=== PATIENT | male | born 1940 | race Hispanic/Latino ===

== ENCOUNTER 2018-02-07 05:40 | Inpatient (IN) | payer MEDICARE, OTHER ==
--- NOTE | 2018-01-27 11:46 | NUR ---
PATIENT IS HERE TODAY FOR PREADMISSION APPOINTMENT. HE IS SCHEDULED TO HAVE SURGERY ON 02/07/18. HE IS SWEDISH SPEAKING. MELISSA FROM THE IMAGING DEPARTMENT WAS ABLE TO COME AND TRANSLATE. PATIENT STATES HE LIVES ALONE AND DOES NOT HAVE ANYONE RELIABLE TO TAKE HIM TO APPOINTMENTS SO HE CALLS UNTIL HE FINDS SOMEONE. HE WOULD LIKE TO HAVE PHYSICAL THERAPY SET UP IN [place] AND PLANS TO GO HOME AFTER SURGERY WHEN HE IS DISCHARGED. HE HAS 3 STEPS INTO HIS HOME AND NO STEPS ONCE INSIDE THE HOME. HE HAS A TUB/SHOWER COMBO AND WE TALKED ABOUT NEEDING TO OBTAIN A SHOWER BENCH. HE WAS GIVEN PLACES HE WOULD PURCHASE ONE OR POSSIBLY RENT ONE. HE WOULD LIKE DC PLANNING TO LOOK INTO HAVING A WALKER DELIVERED TO THE HOSPITAL BEFORE HIS DC HOME. HE HOPES HE WILL HAVE SOMEONE WITH HIM THE MORNING OF SURGERY TO TRANSLATE BUT STATES THE PERSON DRINKS ALCOHOL AND IS UNRELIABLE. THIS INFORMATION WILL BE SENT TO DR QUINTANILLA OFFICE AND DC PLANNING FOR FURTHER FOLLOW UP.
[~2018-02-07] VITALS: Ht 170.2 cm; Wt 90.7 kg
--- NOTE | 2018-02-07 08:46 | NUR ---
02/07/18 0846 Gemini Buckley 0826 PT ARRIVES TO PACU WITH ORAL AIRWAY X 2 AND NPA TO LEFT NARE IN PLACE. PT ON SIMPLE MASK AT 10 LPM. BREATHING EVEN AND NON LABORED. PT NONAROUSABLE AT THIS TIME. CMS INTACT TO LEFT LEG, BILATERAL SCD'S AND WALTER HOSE IN PLACE. 0842 NO CHANGE IN PT ASSESSMENT. BREATHING EVEN AND NON LABORED. IV FLUIDS INFUSING TKO. PT NONAROUSABLE, CRYOCUFF PLACED TO LEFT LEG.
--- NOTE | 2018-02-07 09:45 | NUR ---
PT ARRIVED TO FLOOR VIA HOSPITAL BED, RECIEVED REPORT FROM SHIN LÓPEZ. PT LATVIAN SPEAKING MOSTLY BUT IS ABLE TO MAKE NEEDS KNOWN. DENIES PAIN OR NAUSEA, REQUESTING SOME WATER TO DRINK, SHAZIA SIPS OF WATER AT THIS TIME. LEFT KNEE DRESSING CDI. CRYOCUFF, TEDS, HEEL PROTECTORS, AND SCD'S IN PLACE. PT ALERT AND ORIENTED. SATTING 98% ON RA. IV INFUSING WNL. DURAMORPH SPINAL RESOLVING APPROPRIATELY, SENSATION AT ANKLE LEVEL AT THIS TIME, GOOD MOVEMENT. PT VOIDED IN URINAL UPON ARRIVING TO ROOM. CALL LIGHT WITHIN REACH.
--- NOTE | 2018-02-07 10:49 | OR ---
[facility] [address], [place] [address] Signed DATE OF OPERATION: 02/07/2018 SURGEON: Antonio Brock MD PREOPERATIVE DIAGNOSIS: Degenerative joint disease, left knee. POSTOPERATIVE DIAGNOSIS: Degenerative joint disease, left knee. PROCEDURE PERFORMED: Left total knee arthroplasty with computer navigation. VENDING MANAGER: None. ANESTHESIA: Spinal. BLOOD LOSS: Minimal. TOURNIQUET TIME: 55 minutes. IMPLANT: [place] Triathlon size 5 with a 13 mm insert, 35 mm patella. BRIEF HISTORY: Juan Carlos is a 77-year-old gentleman with progressive worsening of severe arthritis. He had unremitting pain that was non-relieved by nonoperative measures. The risks and benefits of operative treatment were discussed with him and he elected to proceed. DESCRIPTION OF PROCEDURE: Once consent was obtained, he was taken to the operating room. After adequate anesthesia, he was placed on the operating table. All downside pressure points well padded. The left hip bump was placed. The leg was placed in well-padded proximal thigh tourniquet, and prepped and draped in the standard sterile fashion. The leg was exsanguinated using Esmarch bandage. Tourniquet inflated to 250 mmHg. Standard anterior approach through curved incision was taken through skin and subcutaneous Electronically Signed By: ANTONIO BROCK MD 02/07/18 1049 PATIENT NAME: JUAN CARLOS LUCIO OPERATIVE REPORT DATE OF : 42 REPORT #: [id number] PHYSICIAN: ANTONIO BROCK MD PCP: NO PRIMARY CARE PHYSICIAN REPORT IS CONFIDENTIAL AND NOT TO BE RELEASED WITHOUT AUTHORIZATION [facility] [address], [place] [address] Signed tissue. Median parapatellar arthrotomy was performed. The infrapatellar fat pad was excised and the MCL was elevated of a sleeve around the posterior medial corner. The anterior horns of menisci were transected as was the ACL. The knee was flexed and the menisci were removed. The navigation guide was pinned to the distal femur and the femur was registered with the computer. The distal femoral cutting block was then pinned in neutral alignment and the distal femoral cut was made. The distal femur sized to a 5 and the 5 cutting block was pinned in line with the epicondylar axis. The anterior, posterior, and chamfer cuts were made. The bone was excised as were any osteophytes. Attention was then turned to proximal tibia. The navigation guide was pinned to the proximal tibia and the tibia was registered with the computer. The cutting block was then pinned in neutral alignment and set to take 2 mm off the most involved posterior medial corner. Once this was accomplished, the tibial cut was made with care taken to protect the patellar tendon and MCL. The bone was excised as were any meniscal remnants. Posterior osteophytes removed off the femur. Posterior release performed. The flexion and extension gaps were sized and found to be symmetric at 13 mm. The trials were positioned. Knee was taken through range of motion and found to be stable from 0-140 degrees. Alignment was neutral. The patella was cut, sized, and drilled for a 35 mm patella. The patella tracked well. The distal femoral holes were made and the trials removed. The proximal tibia was finished using the keel punch and the bone was pulse lavaged, packed with dry Ray-Kathe. Cement was mixed, when reached proper consistency, displaced all implants on all bone surfaces. Tibia was impacted into position first followed by the femur. All excess cement was removed. The polyethylene was snapped into position. Knee was extended and nicely loaded. The patella was clamped and again any remaining cement was removed. The cement was allowed to harden. Once it hardened sufficiently, the knee was flexed and any remaining excess was removed using osteotomes. The knee was pulse lavaged at intervals throughout the procedure. A total of 3 L antibiotic irrigation was used. The periarticular soft tissues were injected with 100 mL ropivacaine Toradol mixture. The arthrotomy was then closed using #2 StrataFix, the subcutaneous tissue with 0 Stratafix, and skin with ammon. Wound was dressed with a Mepilex Ag dressing, ABD, and Beto wrap. He was awakened and taken to recovery room in satisfactory condition. All sponge, needle, and instrument counts were correct. Antonio Brock MD BA/MODL /[id number] Electronically Signed By: ANTONIO BROCK MD 02/07/18 1049 PATIENT NAME: JUAN CARLOS LUCIO OPERATIVE REPORT DATE OF : 42 REPORT #: [id number] PHYSICIAN: ANTONIO BROCK MD PCP: NO PRIMARY CARE PHYSICIAN REPORT IS CONFIDENTIAL AND NOT TO BE RELEASED WITHOUT AUTHORIZATION [address] [address] Signed Copies: ~ Electronically Signed By: ANTONIO BROCK MD 02/07/18 1049 PATIENT NAME: JUAN CARLOS LUCIO OPERATIVE REPORT DATE OF : 42 REPORT #: [id number] PHYSICIAN: ANTONIO BROCK MD PCP: NO PRIMARY CARE PHYSICIAN REPORT IS CONFIDENTIAL AND NOT TO BE RELEASED WITHOUT AUTHORIZATION
--- NOTE | 2018-02-07 10:55 | NUR ---
PT SITTING UP IN BED DRINKING CLEAR LIQUIDS, SHAZIA WELL. CONT TO DENY PAIN. REPORTING SENSATION DOWN TO TOES BUT LEFT SIDE OF BUTTOCKS REMAINS NUMB. PT WEANED TO RA, SATTING 96% ON RA. DRESSING CDI. CALL LIGHT WITHIN REACH.
--- NOTE | 2018-02-07 11:13 | NUR ---
PATIENT CALLED FOR ASSISTANCE WITH URINARY INCONTINENCE. THIS EXTERNAL GRINDER, AND RN TANNER AND STUDENT NURSE ASSISTED PATIENT TO SIT AT EDGE OF BED AND STAND BRIEFLY IN ORDER TO CHANGE LINENS. PATIENT LAYING BACK IN BED. BED ALARM ON. CRYO ON, SCD'S ON. CALL LIGHT IN REACH. RN IN ROOM. NO OTHER NEEDS AT THIS TIME.
--- NOTE | 2018-02-07 12:14 | NUR ---
PT RESTING IN BED, WATCHING TV AND SLEEPING OFF AND ON. DRESSING CDI. PT CONT TO DENY PAIN. CALL LIGHT WITHIN REACH.
--- NOTE | 2018-02-07 13:15 | NUR ---
PT RESTING WITH EYES CLOSED, RESP EVEN AND UNLABORED. SATTING 92% ON RA WHILE ASLEEP.
--- NOTE | 2018-02-07 13:26 | NUR ---
THERAPY IN ROOM WITH PATIENT, NO OTHER NEEDS AT THIS TIME.
--- NOTE | 2018-02-07 13:45 | NUR ---
PT WORKING WITH Bry
--- NOTE | 2018-02-07 14:36 | NUR ---
PATIENT REQUESTED BREIFS TO WEAR, AND SOMETHING TO EAT. PATIENT DRESSED IN PULL UP BRIEFS. PATIENT REQUESTED TO TALK TO RN ABOUT SURGERY PROCEDURE. PATIENT'S CRYO REFILLED. RN IN ROOM. CALL LIGHT IN REACH. NO OTHER NEEDS AT THIS TIME.
--- NOTE | 2018-02-07 15:08 | NUR ---
USED HAND FORMER HELPER LINE TO COMMUNICATE WITH PT. HAND FORMER HELPER HAS DIFFIFCUTY UNDERSTANDING PT HE WAS MUMBLING AND SLURRING HIS WORDS. PT BECOMES OBVIOUSLY FRUSTRATED WHEN WE CANNOT UNDERSTAND HIM. DENIES PAIN. STATES SOMETIMES HE CAN'T FEEL WHEN HE PEES. PT SEEMS TO BE GENERALLY CONFUSED ABOUT THE PROCEDURE AND WHAT IS GOING ON AT THIS MOMENT IN TIME. ATTEMPTED TO EDUCATE PT USING HAND FORMER HELPER LINE. PT AGREEABLE BUT DROWSY AND FELL ASLEEP EASILY THROUGHOUT CONVERSATION. DRESSING CDI. CALL LIGHT WITHIN REACH.
--- NOTE | 2018-02-07 15:34 | NUR ---
PATIENT RESTING IN BED, ON PHONE. CALL LIGHT IN REACH. NO OTHER NEEDS AT THIS TIME
--- NOTE | 2018-02-07 16:00 | NUR ---
PT TRANSFERRED TO RM 121. PT VERY IMPULSIVE, SLIGHTLY DISORIENTED, DIFFICULT TO COMMUNICATE WITH. DR. QUINTANILLA NOTIFIED AND AWARE. PT IN BED AT THIS TIME FALLING ASLEEP OFF AND ON. SATS DROP TO 88% WHILE ASLEEP, PLACED ON 2LNC. TEDS, SCD'S, CRYOCUFF, HEEL PROTECTORS IN PLACE. BED ALARM ON. CALL LIGHT WITHIN REACH.
--- NOTE | 2018-02-07 16:50 | NUR ---
PATIENT'S CRYO CUFF STILL FULL. PATIENT ON PHONE WITH FAMILY, CALL LIGHT AND BELONGINGS WITHIN REACH, NO OTHER NEEDS AT THIS TIME.
--- NOTE | 2018-02-07 17:20 | NUR ---
PT AWAKES TO VOICE BUT FALLS ASLEEP EASILY. VOIDS FREQUENTLY IN URINAL. LEFT LEG DRESSING CDI. DENIES PAIN.
--- NOTE | 2018-02-07 18:20 | NUR ---
PT IN BED RESTING WITH EYES CLOSED. SATTING 95% ON 2LNC.
--- NOTE | 2018-02-07 18:43 | NUR ---
PT INCONTINENT OF URINE. LINENS CHANGED. PT HAS TROUBLE FOLLOWING COMMANDS. BED ALARM ON.
--- NOTE | 2018-02-07 19:55 | NUR ---
RECEIVED REPORT FROM DAY SHIFT RN. PATIENT IS RESTING IN BED WATCHING TV. FAMILY IS IN THE ROOM AT THIS TIME. CALL LIGHT IN REACH.
--- NOTE | 2018-02-07 20:44 | NUR ---
PT USED URINAL APPROX 15 MIN AGO. REQUESTED AND RECEIVED PUDDING, JELLO. DRINKING WATER WITHOUT COMPLAINTS OF NAUSEA. NEEDED REMINDERS TO NOT PUSH AGAINST THE BED WITH HIS LEFT FOOT, TO KEEP LEG STRAIGH. APPEARED TO UNDERSTAND BY HIS NOD, MING IN ROOM SPEAKING BROKEN AZERBAIJANI TO HIM THE INSTRUCTIONS GIVEN.
--- NOTE | 2018-02-07 21:42 | NUR ---
PATIENT ASSESMENT COMPLETED. HOSPITAL STAFF IN THE ROOM TO INTERPRET MEDICATIONS. PATIENTS MEDICATIONS GIVEN PER ORDER. PATIENT DENIES ANY PAIN AT THIS TIME. PATIENT ASSISTED TO THE RESTROOM A 2PA W/FWW. PATIENT STRUGGLES WITH INSTRUCTIONS. PATIENT NEEDS CONSTANT REMINDER ON PROPER MECHANICS WITH THE FWW. PATIENT IS BACK IN BED RESTING. PATIENT HAS TEDHOSE, SCDS, CRYO, AND HEEL PROTECTORS IN PLACE. PATIENTS CRYO REFILLED WITH ICE PER DIRECTIONS. PATIENT DENIES ANY PAIN AFTER AMBULATION. PATIENTS DRESSING IS C/D/I WITH NO DRAINAGE PRESENT. PATIENT HAS PULSE OX IN PLACE, READINGS ARE WNL. PATIENT IS ON RA. PATIENTS URINE OUTPUT IS QS. PATIENT APPEARS SLIGHTLY CONFUSED. PATIENTS BED ALARM IS ON FOR SAFETY. CALL LIGHT IN REACH AND DEMONSTRATED ON HOW TO USE.
--- NOTE | 2018-02-07 23:59 | NUR ---
PATIENT IS RESTING IN BED WITH EYES CLOSED. PULSE OX READINGS ARE WNL. PATIENT IS ON RA. PATIENT HAS SCDS, TEDHOSE, CRYO AND HEEL PROTECTORS IN PLACE. CALL LIGHT IN REACH.
--- NOTE | 2018-02-08 02:26 | NUR ---
PATIENTS 0200 VITALS TAKEN AND RECORDED. PATIENTS 0200 MEDICATIONS GIVEN PER ORDER. PATIENT DENIES ANY PAIN. PATIENT USED URINAL IN BED AND WAS ABLE TO VOID. PATIENT CONTINUES TO REST IN BED WITH SCDS, TEDHOSE, HEEL PROTECTORS, AND CRYO IN PLACE. CRYO REFILLED WITH ICE. PATIENT REPOSTIONED IN BED. PATIENT REMINDED TO KEEP HIS KNEE STRAIGHT. PATIENT VERBALIZED UNDERSTANDING. PATIENT DENIES ANY FURTHER NEEDS. PATIENT REMAINS FORGETFUL AT TIMES AND STUGGLES WITH FOLLOWING COMMANDS. BED ALARM ON FOR SAFETY. CALL LIGHT IN REACH.
--- NOTE | 2018-02-08 04:32 | NUR ---
PATIENT IS RESTING IN BED WITH EYES CLOSED. RR 17. PULSE OX READINGS ARE WNL. CALL LIGHT IN REACH. BED ALARM IS ON FOR SAFETY.
--- NOTE | 2018-02-08 05:02 | NUR ---
PATIENT RESTED WELL THROUGHOUT THE SHIFT. PATIENT IS [place] SPEAKING. PATIENT IS CONFUSED AT TIMES, REORIENTS EASILY. PATIENT IS A 2PA W/FWW. PATIENT STRUGGLES TO FOLLOW DIRECTIONS. PATIENT IS ON A REGULAR DIET AND IS TOLERATING IT WELL, NO NAUSEA NOTED. PATIENT HAS SCDS, TEDHOSE, AND HEEL PROTECTORS BILAT LOWER EXT. PATIENT HAS CRYO APPLIED TO LEFT KNEE. PATIENT HAS BED ALARM ON FOR SAFETY. PATIENTS DRESSING IS C/D/I, NO DRAINAGE NOTED. PATIENT HAS IV FLUIDS INFUSING. OUTPUT QS. PATIENT IS ON RA.
--- NOTE | 2018-02-08 06:35 | NUR ---
PATIENTS MORNING MEDICATIONS GIVEN PER ORDER. PATIENT RATES PAIN AT A 2/10. PATIENT DENIES THE NEED FOR FURTHER PAIN MEDICATION. PATIENT ASSISTED TO USE THE URINAL PATIENT WAS ABLE TO VOID. PATIENT IS NOW IN THE RECLINER RESTING. SCDS, TEDHOSE, AND HEEL PROTECTORS IN PLACE. CRYO REFILLED WITH ICE. PATIENT HAS CRYO APPLIED TO LEFT KNEE. PATIENTS DRESSING IS C/D/I, NO DRAINAGE NOTED. PATIENT IS MORE CLEAR THIS MORNING. PATIENTS CHAIR ALARM IS ON FOR SAFETY. PATIENTS CALL LIGHT IN REACH.
--- NOTE | 2018-02-08 06:49 | NUR ---
MARIBEL ALONZO COMMUNICATED IN DANISH TO PT. ABLE TO GET A BREAKFAST ORDER, SHE TOLD PT TO KEEP LEG STRAIGHT, TO USE CALL LIGHT WHEN HE NEEDS HELP, HE TOLD HER THAT HE CAN'T READ, GLASSES DON'T HELP. PT STATED HE UNDERSTOOD.
--- NOTE | 2018-02-08 07:00 | NUR ---
BEDSIDE HANDOFF REPORT RECEIVED FROM PARKING METER COLLECTOR RN. PT SITTING IN CHAIR. CRYOCUFF AND SCDS IN PLACE. PT ON ROOM AIR. PT DENIES NEEDS AT THIS TIME, TALKING ON THE PHONE.
--- NOTE | 2018-02-08 07:51 | NUR ---
PATIENT SITTING UP IN CHAIR. RN, STUDENT NURSE, AND IN ROOM TO SEE PATIENT.
--- NOTE | 2018-02-08 08:00 | NUR ---
PT SITTING IN CHAIR. MD TO BEDSIDE TO EVALUATE PT. PT ON ROOM AIR, LUNG SOUNDS CLEAR. PT RATING PAIN 0/10. PT DENIES NAUSEA, BOWEL TONES ACTIVE, TOLERATING REGULAR DIET, PT DOES NOT HAVE DENTURES IN PLACE. PT ALERT/ORIENTED. PT WITH DRESSING TO LEFT KNEE, CDI. PT WITH FULL SENSATION IN BLE, ABLE TO DORSI/PLANTAR FLEX, PULSES PALPABLE, CAP REFILL 2 SECONDS. WALTER HOSE AND SCDS IN PLACE. IV FLUIDS INFUSING TO RIGHT HAND. INCOME TAX ADMINISTRATOR AND INSTRUCTOR AT BEDSIDE TO PASS MORNING MEDICATIONS. PT DENIES OTHER NEEDS AT THIS TIME.
--- NOTE | 2018-02-08 11:26 | NUR ---
PATIENT SITTING UPRIGHT IN BEDROOM CHAIR SPEAKING WITH FAMILY, PATIENT REPORTS 2/10 PAIN TO LEFT KNEE, PATIENT DENIES NEED FOR INTERVENTIONS AT THIS TIME.
--- NOTE | 2018-02-08 11:53 | NUR ---
PATIENT HAS WORKED WITH OTHERAPY AND PTHERAPY. PATIENT SITTING UP IN CHAIR. STUDENT NURSE IN ROOM. STUDENT NURSE HAS BEEN ASSISTING WITH TRANSLATING. ICE IN CRYO. FRESH ICE WATER. CALL LIGHT WITHIN REACH. NO OTHER NEEDS AT THIS TIME.
--- NOTE | 2018-02-08 12:45 | NUR ---
PT ASSISTED TO BATHROOM AND BACK TO CHAIR. PT DENIES PAIN AT REST, RATIGN PAIN 2/10 WITH MOVEMENT, DECLINING NEED FOR PAIN MEDICATION. PT TOLERATING REGULAR DIET, DENIES NAUSEA. PT ON ROOM AIR, DENIES SOB. DRESSING TO LEFT KNEE, CDI, CRYOCUFF IN PLACE. CMS INTACT, WITHOUT EDEMA. NO ACUTE CHANGES. PT DENIES OTHER NEEDS AT THIS TIME.
--- NOTE | 2018-02-08 16:32 | NUR ---
PATIENT ASSESSMENT, PATIENT ON ROOM AIR, PATIENT WITH NORMAL PULSES BILATERALLY IN ALL EXTREMITIES, PATIENT WITH CLEAR LUNG SOUNDS IN ALL PARK, BOWELS ACTIVE, PATIENT IS ALERT AND ORIENTED, PATIENT WITH REPORTS OF PAIN UPON AMBULATION WITH PT, ADMINISTRATION OF PRN OXYCODONE GIVEN TO PATIENT, PATIENT IN POSITION OF COMFORT IN CHAIR WITH LEFT LEG EXTENDED STRAIGHT, CRYO PACK IN PLACE. WARM BLANKET PROVIDED.
--- NOTE | 2018-02-08 17:28 | NUR ---
PATIENT AWAKE IN BEDSIDE CHAIR THROUGHOUT THE SHIFT. PATIENT IS ALERT AND ORIENTED. LUX[place]BOURG[place] SPEAKING, NO CONFUSION. PATIENT AMBULATED WITH PT TODAY, PATIENT IS A 1PA W/FWW TO BATHROOM. PATIENT REPORTS DIZZINESS AT TIMES WHILE AMBULATING. PATIENT IS ON A REGULAR DIET AND IS TOLERATING WELL, NO NAUSEA. PATIENT'S PAIN CONTROLLED WITH SCHEDULE TYLENOL/TORADOL AND OXYCODONE. PATIENT HAS SCDS, TEDHOSE, AND HEEL PROTECTORS BILATERAL WITH CRYO APPLIED TO LEFT KNEE. DRESSING CLEAN, DRY AND INTACT. PATIENT HAS IV SALINE LOCKED. PATIENT IS ON RA.
[2018-02-08] MEDS ORDERED: DORZOLAMIDE-TIM10 ML OU (18:20)
[2018-02-08] MEDS ORDERED: TYLENOL325 MG PO (18:21)
--- NOTE | 2018-02-08 18:21 | NUR ---
MED REC COMPLETE
--- NOTE | 2018-02-08 19:10 | NUR ---
RECEIVED REPORT FROM DAY SHIFT RN. PATIENT IS RESTING IN THE RECLINER TALKING ON HIS CELLPHONE. NO NEEDS NOTED. CALL LIGHT IN REACH.
--- NOTE | 2018-02-08 19:58 | NUR ---
THIS INDUSTRIAL LOCOMOTIVE OPERATOR ASSISTED PATIENT FROM THE CHAIR TO THE RESTROOM. 1 PERSON WITH FWW. PATIENT NOW SITTING UP IN BED. ICE IN CRYO. FRESH ICE WATER. SCDs AND HEEL PROTECTORS ON. BED ALARM ON. CALL LIGHT WITHIN REACH. NO OTHER NEEDS AT THIS TIME.
--- NOTE | 2018-02-08 20:20 | NUR ---
PATIENT ASSESMENT COMPLETED. PATIENTS EVENING MEDCIATIONS GIVEN PER ORDER. PATIENT RATES PAIN AT A 3/10. PATIENT DENIES THE NEED FOR PRN PAIN MEDICATION AT THIS TIME. PATIENT REPOSITIONED IN BED. PATIENT HAS SCDS, TEDHOSE, CRYO, AND HEEL PROTECTORS IN PLACE. PATIENTS CRYO HAS SUFFICIENT ICE AT THIS TIME. PATIENT HAS A SMALL AMOUNT OF DRAINAGE NOTED ON THE MEPILEX. PATIENT IS JAMA[place] SPEAKING. INTERPRETIVE MEASURES USED TO COMMUNICATE. PATIENT IS AAOX3. PATIENT IS FORGETFUL WITH MOVEMENT WITH HIS KNEE AND RESTING ON HIS SIDE. PATIENT EDUCATED ON PROPER REST WITH HIS KNEE. PATIENT VERBALIZED UNDERSTANDING. NO FURTHER NEEDS NOTED. CALL LIGHT IN REACH. BED ALARM ON FOR SAFETY PATIENT IS IMPULSIVE AT TIMES.
--- NOTE | 2018-02-08 21:35 | NUR ---
PATIENTS BED ALARM ALERTED STAFF. PATIENT WAS USING URINAL. PATIENT REPOSITIONED IN BED WHEN HE WAS DONE VOIDING. NO NEEDS NOTED. CALL LIGHT IN REACH. NAD BED ALARM ON.
--- NOTE | 2018-02-08 23:54 | NUR ---
PATIENTS URINAL EMPTIED. PATIENT EDUCATED ON NOT SLEEPING ON HIS SIDE. PATIENT VERBALIZED UNDERSTANDING. PATIENT DENIES ANY PAIN. PATIENT DENIES ANY FURTHER NEEDS. CALL LIGHT IN REACH.
--- NOTE | 2018-02-09 00:45 | NUR ---
PATIENT WAS FOUND RESTING IN BED ON HIS LEFT SIDE WITH KNEES CURLED UP. USED INTERPRETIVE LINE TO EDUCATED PATIENT ON PROPER POSITIOING. PATIENT VERBALIZED UNDERSTANDING. PATIENT DENIES ANY PAIN. NO FURTHER NEEDS NOTED. CALL LIGHT IN REACH.
--- NOTE | 2018-02-09 02:27 | NUR ---
PATIENT ASSISTED TO THE RESTROOM BY POSTAL DELIVERY OFFICER. PATIENT IS A SBA W/FWW. PATIENT IS FOLLWOING DIRECTIONS BETTER BUT STILL STRUGGLES. PATIENT IS BACK IN BED RESTING. SCDS, TEDHOSE, HEEL PROTECTORS AND CRYO IN PLACE. PATIENT RATES PAIN AT A 3/10. 0200 SCHEDULED MEDICATIONS GIVEN PER ORDER. PRN PAIN MEDICATION GIVEN PER ORDER. NO FURTHER NEEDS NOTED. CALL LIGHT IN REACH. AND BED ALARM ON.
--- NOTE | 2018-02-09 04:22 | NUR ---
PATIENT IS RESTING IN BED WITH EYES CLOSED. BREATHING IS EVEN AND UNLABORED, RR 17. CALL LIGHT IN REACH.
--- NOTE | 2018-02-09 05:12 | NUR ---
PATIENT RESTED WELL THROUGHOUT THE SHIFT. PATIENT IS ON A REGUALR DIET, TOLERATING WELL, NO NAUSEA NOTED. PATIENT HAS HEEL PROTECTORS, SCDS, TEDHOSE, CRYO IN PLACE. PATIENT IS A 1PA W/FWW. PATIENT IS SL AND IV FLUSHES WELL. PAITENT IS [place] SPEAKING. PATIENT IS AAOX3. PATIENTS DRESSING HAS OLD DRAINGE NOTED. PATIENT RECEIVED PRN PAIN MEDICATION X1. PATIENT IS IMPULSIVE AT TIMES. BED ALARM ON FOR SAFETY.
--- NOTE | 2018-02-09 06:24 | NUR ---
PATIENT ASSITED TO THE RESTROOM A SBA W/FWW. PATIENT TOLERATED AMBULATION WELL. PATIENT IS NOW RESTING IN RECLINER. PATIENT HAS TEDHOSE, SCDS, HEEL PROTECTORS, AND CRYO IN PLACE. CRYO REFILLWED WITH ICE. PATIENT DENIES ANY PAIN. MORNING MEDICATIONS GIVEN PER ORDER. PATIENT DENIES ANY FURTHER NEEDS. AAOX3. CALL LIGHT IN REACH.
--- NOTE | 2018-02-09 06:48 | NUR ---
NEW IV STARTED IN PATIENTS LEFT HAND. OTHER IV DC'D, N OLONGER PATENT. NO PAIN NOTED. CALL LIGHT IN REACH.
--- NOTE | 2018-02-09 07:15 | NUR ---
BEDSIDE HANDOFF REPORT RECEIVED FROM MACHINE SNELLER RN. PT UP TO BATHROOM, ASSISTED BACK TO CHAIR. PT DENIES OTHER NEEDS AT THIS TIME.
--- NOTE | 2018-02-09 08:27 | NUR ---
PT SITTING IN CHAIR. PT ON ROOM AIR, LUNG SOUNDS CLEAR. PT TOLERATING REGULAR DIET, DENIES NAUSEA, BOWEL TONES ACTIVE, PT WITH BM TODAY, SENNA AND MIRALAX HELD. PT SALNE LOCKED, IV TORADOL GIVEN BY NUDE MODEL AND INSTRUCTOR. MD TO BEDSIDE, REMOVED DRESSING, ORDER TO REPLACE DRESSING THIS AM, PLAN TO DISCHARGE TOMORROW. CMS INATCT, WITHOUT EDEMA, PULSES PALPABLE, STRENGTH EQUAL BILATERALLY. WALTER HOSE, SCDS, HEEL PROTECTORS AND CRYOCUFF IN PLACE. PT RATIGN PAIN 0/10 AT REST, 10/10 WITH ACTIVITY, PRN OXYCODONE GIVEN FOR PROPHYLAXIS FOR PT/OT THIS AM. PT COMPLAINT OF DIZZINESS, BP 122/69, O2 SATS 95%. CALL LIGHT WITHIN REACH. PT DENIES OTHER NEEDS AT THIS TIME.
--- NOTE | 2018-02-09 12:02 | NUR ---
DR. QUINTANILLA CALLED AND UPDATED ON HYPOTENSION, 500 ML NS BOLUS AND PT CONDITION. NO NEW ORDERS. PT CURRENTLY WORKING WITH OCCUPATIONAL THERAPY.
--- NOTE | 2018-02-09 12:39 | NUR ---
FAXED CHART NOTES TO [facility] TO INCLUDE FACESHEET, ORDER FOR FWW, H AND P, OP NOTES, PROG NOTES, PT AND OT NOTES. TALKED WITH ANIL AT [facility], SHE STATED IT WOULD BE BROUGHT UP TO PT TODAY.
--- NOTE | 2018-02-09 15:00 | NUR ---
GABAPENTIN GIVEN PER ORDER. TYPESETTING SUPERVISOR PHONE USED TO EDUCATE PT ABOUT GABAPENTIN. PT REQUESTING TO USE BATHROOM, 1PA WITH FWW. PT ASSISTED BACK TO BED. VOIDING QS, HAD BM. SCDS, WALTER HOSE, CRYOCUFF, HEEL PROTECTORS IN PLACE. PT RATIGN PAIN 10 AT THIS TIME. PT DENIES OTHER NEEDS.
--- NOTE | 2018-02-09 18:21 | NUR ---
PT ON ROOM AIR, LUNG SOUNDS CLEAR. PT COMPLAINT OF DIZZINESS, HYPOTENSIVE THIS AM, 500 ML FLUID BOLUS GIVEN. PT TOLERATING REGULAR DIET, DENIES NAUSEA, MULTIPLE STOOLS TODAY, MIRALAX HELD. PAIN MANAGED WITH PRN OXYCODONE, SCHEDULED TYLENOL AND TORADOL. UP WITH 1PA WITH FWW, NEEDS PROMPTING TO KEEP WALKER CLOSE. SCDS, WALTER HOSE, HEEL PROTECTORS AND CRYOCUFF. DRESSING CHANGED TODAY. VOIDING QS.
--- NOTE | 2018-02-09 20:25 | NUR ---
ROUNDED CHARGE. PATIENT IS RESTING IN BED. NO PAIN NOTED. PATIENT DENIES ANY COMMENTS, QUESTIONS, OR CONCERNS. NO NEEDS NOTED. CALL LIGHT IN REACH.
--- NOTE | 2018-02-09 20:42 | NUR ---
Voided clear yellow urine, up to brp, uses 1 sba and fww. Jose simons bilat, scds, cryocugg and heel protectors in place, dressing left knee. SL patent Coop with assessment
--- NOTE | 2018-02-09 23:18 | NUR ---
RESTING, EYES CLOSED, L KNEE SURGICAL SITE OPEN TO AIR, EDGES WELL APPROX, CDI, WALTER HOSE, SCDS, HEEL PROTECTOR BILAT IN PLACE, CRYOCUFF TO LEFT KNEE AREA. NO S/SX DISTRESS
--- NOTE | 2018-02-10 04:29 | NUR ---
Resting, no distress, eyes closed, no s/sx distress. L knee cryocuff in place, kimberli hoses, scds, heel protectors bilat in place.
--- NOTE | 2018-02-10 05:06 | NUR ---
up to brp, voided plus used urinal, had smear of bm, no other c/o pain. 1SBA and FWW, tolerated well,
--- NOTE | 2018-02-10 05:45 | NUR ---
Up to brp using fww and 1 assist. gait slightly unsteady, reinforcement of proper use of walker/gait coordination. Left Knee incision open to air, CDI. kimberli hose, scds, heel protectors in place bilat. L knee cryocuff in place. Takes Tylenols and Toradol for pain control ATC. good pain control stated. Currently awake, in bed, HOB elevated ,no c/o pain, no sob, no requests. Pt does require several cues at times to get into bed. COntinue to reinforce teaching. All procedures and care explained to pt in Belarusian, stated understanding
--- NOTE | 2018-02-10 05:51 | NUR ---
Pt continues on cbg's q6h, teaching given to pt verbally and written in Belgian, all questions answered to her satisfaction. Pt seems to have a hard time doing fingerstick and giving own insulin when this RN tryed to teach her. Pt has arthritis in hands and it makes it difficult to place a good ggrasp on lancets/syringes. Continue to reinforce teaching. No c/o abd pain or n/v. IVF infusing w/o problems. Pt tolerating clear liquid diet. Up to brp with one assist. Belgian speaking, all intructions given in Belgian, all questions answered to pts satisfaction, continue to reinforce diabetic teaching
--- NOTE | 2018-02-10 06:55 | NUR ---
Dr Brock in room examining pt
--- NOTE | 2018-02-10 07:15 | NUR ---
BEDSIDE HANDOFF REPORT RECEIVED FROM SOFTWARE ENGINEER WEB SERVICES RN. PT SLEEPING, LEDT UNDISTURBED.
--- NOTE | 2018-02-10 08:45 | NUR ---
PT SLEEPING IN BED, AWOKEN FOR MEDICATIONS AND MORNING ASSESSMENT. INTERNET MARKETING ASSISTANT PHONE USED. PT DENIES PAIN, DENIES NAUSEA. PT ON ROOM AIR, LUNG SOUNDS CLEAR. PT DENIES NAUSEA, BOWEL TONES ACTIVE, TOLERATING REGULAR DIET, ASSISTED WITH ORDERING BREAKFAST. CMS INTACT, WITHOUT EDEMA, PULSES PALPABLE. STRENGTH EQUAL IN BLE. PT ASSISTED TO BATHROOM AND THEN TO CHAIR. SCDS. WALTER HOSE, AND CRYOCUFF IN PLACE. PT DENIES OTHER NEEDS AT THIS TIME.
--- NOTE | 2018-02-10 11:14 | NUR ---
PT ASSISTED TO BATHROOM AND BACK TO CHAIR. PT WITH URIN AWILDA SOCKS AND WALTER HOSE, REMOVED, SKIN CLEANSES, NEW TEDS AND SOCKS APPLIED. NURSE AIDE AT [facility], FILLING CRYOCUFF. PT DENIES OTHER NEEDS AT THIS TIME.
--- NOTE | 2018-02-10 12:00 | NUR ---
PT SITTING IN CHAIR. PT DENIES PAIN. PT ON ROOM AIR. CMS INTACT. CRYOCUFF TO LEFT KNEE. NO ACUTE CHANGES. PT DENIES NEEDS AT THIS TIME.
--- NOTE | 2018-02-10 14:40 | NUR ---
PT WORKED WITH OCCUPATIONAL THERAPY. ASSISTED BACK TO BED. PT RATIGN PAIN 03/06 ATTHIS TIME, GIVEN SCHEDULED TYLENOL AND TORADOL. CRYOCUFF AND SCDS PLACED. PT DENIES OTHER NEEDS AT THIS TIME.
--- NOTE | 2018-02-10 16:48 | NUR ---
I ORDERED HIS BREAKFAST AROUND 9AM THIS MORNING BECAUSE HE STILL SLEEPING. REFUSED TO TAKE A SHOWER.
--- NOTE | 2018-02-10 17:50 | NUR ---
PT ON ROOM AIR, LUNG SOUNDS CLEAR. PAIN WELL MANAGED WITH TYLENOL AND TORADOL, DID NOT REQUIRE OXYCODONE FOR BREAK THROUGH PAIN. PT WORKED WITH PT/OT, MET GOALS. PT TOLERATED REGULAR DIET, DENIES NAUSEA. CMS INTACT, GOOD STRENTH. LEFT KNEE WITH DRESSING, SMALL AMOUNT OF BLOODY DRAINAGE TO MEPILEX. 1PA WITH FWW. WALTER HOSE, CRYOCUFF, SCDS, HEEL PROTECTORS IN PLACE. PT VOIDING QS.
--- NOTE | 2018-02-10 19:35 | NUR ---
RECIEVED BEDSIDE REPORT FROM DAY SHIFT RN. PT IN BED AT THIS TIME. CRYOCUFF IN PLACE, TEDHOSE AND SCD'S IN PLACE. SL LH. REPORTS NO PAIN AT THIS TIME. LANGUAGE BARRIOR NOTED, INTERPRITOR NUMBER IN ROOM. HEEL PROTECTORS IN PLACE. CALL LIGHT IN PLACE.
--- NOTE | 2018-02-10 22:00 | NUR ---
PT OOB WITHOUT USING CALL LIGHT AND WITHOUT WALKER TO BATHROOM. SAW PT FROM NURSING STATION. CAME TO ASSISTANCE, REMINDED OF USE ON WALKER AND FALL PREVENTION. PT VERY INAPROPRIATE WITH FEMALE RN. WOULD NOT VERBALIZE UNDERSTANDING JUST REPEATING "MOMMY, EYE MOMMY, COME HOME WITH ME" INFORMED PT OF INAPPROPRIATENESS. PT DID NOT ACKNOWLEDGE BOUDARY. PT BACK TO BED RE-EDUCATED STONECUTTER HAND LIGHT USE. PT WAS ABLE TO VERBILY STATE WHAT THE CALL LIGHT WAS FOR. BED ALARM IN PLACE, PT VISIBLE FROM NURSING STATION. REPORTS NO OTHER NEEDS AT THIS TIME
--- NOTE | 2018-02-10 22:47 | NUR ---
VITALS AND I&OS DONE AND CHARTED. BEDSIDE TABLE AND CALL LIGHT WITHIN REACH.
--- NOTE | 2018-02-11 | NUR ---
PT APPEARS TO BE SLEEPING. RESPIRATIONS EQUAL AND NONLABORED. CALL LIGHT WITHIN REACH, BED ALARM IN PLACE. CRYOCUFF, SCD'S, TEDHOSE, HEEL PROTECTORS IN PLACE. VISIBLE FROM NURSING STATION.
--- NOTE | 2018-02-11 01:49 | NUR ---
HELPED PT TO THE BATHROOM AND BACK TO BED WITH HIS FWW. CRYO FILLED WITH ICE. BEDSIDE TABLE AND CALL LIGHT WITHIN REACH. SET BED ALARM. PT NEEDS NOTHING ELSE AT THIS TIME.
--- NOTE | 2018-02-11 02:11 | NUR ---
PT APPEARS TO BE SLEEPING, RESPIRATIONS EQAUL AND NONLABORED, AWOKEN EASILY, REPORTS NO PAIN AT THIS TIME. SCHEDULED TORIDOL GIVEN. CALL LIGHT WITHIN REACH, CRYOCUFF, SCD'S, TEDHOSE, HEEL PROTECTORS IN PLACE. BED ALARM ON.
--- NOTE | 2018-02-11 04:42 | NUR ---
PT APPEARS TO BE SLEEPING, RESPIRATIONS ARE EQUAL AND NONLABORED. BED ALARM IN PLACE, CRYOCUFF, TEDHOSE, SCD'S, HEEL PROTECTORS IN PLACE. CALL LIGHT WITHIN REACH,
--- NOTE | 2018-02-11 06:17 | NUR ---
PT SLPET ALL NIGHT. PAIN WELL CONTROLED W/ SCHEDULED TYLENOL AND TORIDOL. SBA W/FWW. PT/OT, SCD'S, CRYOCUFF, HEEL PROTECTORS, TEDHOSE IN PLACE. PRN OXY WAS NOT NEEDED THSI SHIFT. PT IS MALTESE SPEAKING, TRANSLATE PHONE NUMBER IN ROOM. PT ON REG DIET. PLAN TO DC TODAY. GETTING MEDICAID RIDE.
[2018-02-11] MEDS ORDERED: NEURONTIN300 MG PO (07:37)
[2018-02-11] MEDS ORDERED: XARELTO10 MG PO (07:37)
[2018-02-11] MEDS ORDERED: OXYCODONE HCL5 MG PO (07:37)
[2018-02-11] MEDS ORDERED: MAPAP500 M1 PO (07:37)
[2018-02-11] MEDS ORDERED: SENNA LAX8.6 MG PO (07:37)
[2018-02-11] MEDS ORDERED: MIRALAX17 GM PO (07:37)
--- NOTE | 2018-02-14 08:27 | DS ---
[facility] [address] [place], [place] [address] Signed ADMISSION DATE: 02/07/2018 DISCHARGE DATE: 02/11/2018 ADMISSION DIAGNOSIS: Degenerative joint disease, left knee discharge. DISCHARGE DIAGNOSIS: Degenerative joint disease, left knee discharge. PROCEDURE PERFORMED: Left total knee arthroplasty. BRIEF HISTORY: The patient is a 77-year-old gentleman who had severe arthritis. He had undergone nonoperative treatment without substantial relief. Risks, benefits, and alternatives of surgery were discussed with him once medical clearance was obtained. He was taken to the operating room and underwent the above-named procedure. He tolerated this well and was taken to the recovery room and subsequently to orthopedic floor. He was placed on oxycodone and gabapentin for pain relief. He did well although his pain did not improve until the last day of his hospitalization. He was able to ambulate up and down the stairs, up and down the hallway with good safety profile. He was able to get himself in and out of bed to be safe at home. We will discharge him home with outpatient physical therapy. He will follow up with me as previously scheduled. Should he have any problems in the meantime, he will contact me immediately. Antonio Brock MD BA/GRACIELA /[id number] Copies: ~ Electronically Signed By: ANTONIO BROCK MD 02/14/18 0827 PATIENT NAME: JUAN CARLOS LUCIO DISCHARGE SUMMARY DATE OF : 44 REPORT #: [id number] PHYSICIAN: ANTONIO BROCK MD PCP: NO PRIMARY CARE PHYSICIAN REPORT IS CONFIDENTIAL AND NOT TO BE RELEASED WITHOUT AUTHORIZATION
--- NOTE | 2018-02-14 09:30 | NUR ---
WEDNESDAY AFTER PT DC, DANIELE LÓPEZ CAME TO MY OFFICE VOICING A CONCERN ABOUT HOW WELL THE PT UNDERSTOOD HIS DC INSTRUCTIONS AND HIS FOLLOW UP INSTRUCTIONS FOR PT. DR QUINTANILLA OFFICE WAS CLOSED WEDNESDAY AFTERNOON, SO CALLED THE OFFICE THIS AM TO ASK IF [employer] SPEAKING STAFF WOULD FOLLOW UP WITH A PHONE CALL TO MAKE SURE HE UNDERSTOOD THESE INSTRUCTIONS. TALKED WITH ANNABELLE, SHE STATED THEY WOULD GLADLY CALL AND FOLLOW UP WITH HIM. SHE CALLED TO OP PT ONLY TO DISCOVER THAT THE PT WAS ALREADY THERE GETTING HIS THERAPY. STATES SHE WILL CALL THE PT THIS AFTERNOON OR TOMORROW TO SEE HOW HE IS DOING.
--- NOTE | 2018-02-14 10:02 | NUR ---
FAXED DC SUMMARY AND DC PACKET TO ISHA AT DR QUINTANILLA OFFICE. RECIEVED FAX CONFIRMATION FROM THIS.
== END 2018-02-11 12:20 | disposition home or self-care (01) | DRG 470 ==
LOC: DS 05:40 → MS 08:36 → DS 08:36 → MS 12:20
PROVIDERS: ADMIT Specialist
PROC: 8E0YXBZ Computer Assisted Procedure of Lower Extremity (ICD-10-PCS; 2018-02-07)
PROC: 3E0T3BZ Introduction of Anesthetic Agent into Peripheral Nerves and Plexi, Percutaneous Approach (ICD-10-PCS; 2018-02-07)
PROC: 0SRD0J9 Replacement of Left Knee Joint with Synthetic Substitute, Cemented, Open Approach (ICD-10-PCS; principal; 2018-02-07 06:45)
DX: M17.12 Unilateral primary osteoarthritis, left knee (principal); G89.18 Other acute postprocedural pain; N40.1 Benign prostatic hyperplasia with lower urinary tract symptoms; R39.11 Hesitancy of micturition; G89.29 Other chronic pain; I95.2 Hypotension due to drugs; T40.2X5A Adverse effect of other opioids, initial encounter; Y92.239 Unspecified place in hospital as the place of occurrence of the external cause; Z87.891 Personal history of nicotine dependence
CPT/HCPCS: 01402; 36415; 64447; 76942; 80048; 85025; 94762; 97110; 97116; 97161; 97166; 97535; C1713; C1776; G8978; G8979; J0690; J0735; J1100; J1885; J2250; J2274; J2405; J2704; J3010; J7040; J7120